=== PATIENT | female | born 1995 | race Caucasian/White ===

== ENCOUNTER 2018-02-20 22:37 | Emergency (ER) | payer OTHER ==
[~2018-02-20] VITALS: Ht 182.9 cm; Wt 113.8 kg
[~2018-02-20 22:37] MED LIST: ACETAMINOPHEN-1 EAC1 PO; ANTIPYRINE-BENZ10 ML OT; AUGMENTIN 875875 MG PO; CEFDINIR300 MG PO; CIPRO500 MG PO; CORTISPORIN OTI10 ML OTIC; HYDROCODON-ACE1 EAC7 PO; HYDROXYZINE HCL25 M1 PO; IBUPROFEN 800800 M1 PO; IBUPROFEN 800800 MG PO; MEDROLDOSEPACK PO; NORCO 5-325 TA1 EACH PO; PERCOCET 5-3251 EACH PO; PHENERGAN 25 MG25 M1 PO; TRAZODONE HCL100 MG PO; VICODIN 5-5001 EACH PO; ZOFRAN4 MG PO
[2018-02-20] MEDS ORDERED: PROZAC20 MG PO (22:45)
[2018-02-20] MEDS ORDERED: PRAZOSIN HCL1 MG (22:47)
[2018-02-20 23:16] LABS: ABSOLUTE BASOPHILS 0.1 thou/uL (0.0-0.2); ABSOLUTE EOSINOPHILS 0.3 thou/uL (0.0-0.7); ABSOLUTE LYMPHOCYTES 3.8 thou/uL (0.8-5.3); ABSOLUTE MONOCYTES 1.1 thou/uL (0.0-1.2); ABSOLUTE NEUTROPHILS 6.5 thou/uL (1.6-8.1); BASOPHILS 0.6 %; EOSINOPHILS 2.4 %; HEMATOCRIT 40.4 % (37.0-47.0); HEMOGLOBIN 13.4 gm/dL (12.0-15.0); LYMPHOCYTES 32.2 %; MCH 26.5 pg (26.0-34.0); MCHC 33.2 g/dL (28.0-37.0); MONOCYTES 9.4 %; MPV 7.7 fl. (7.2-11.1); NUCLEATED RBCS 0 /100WBC; PLATELET COUNT* 361 thou/uL (150-400); POLYS 55.4 %; RBC 5.05 mil/uL (4.20-5.00); WBC 11.8 thou/uL (4.0-11.0)
[2018-02-20 23:32] LABS: ANION GAP 10 mmol/L (7-16); BUN 14 mg/dL (7-18); CALCIUM 8.7 mg/dL (8.5-10.1); CHLORIDE 102 mmol/L (98-107); CO2 28 mmol/L (21-32); GLUCOSE 104 mg/dL (70-99); POTASSIUM 3.2 mmol/L (3.5-5.1); SODIUM 140 mmol/L (136-145)
[2018-02-20 23:39] LABS: ALBUMIN 3.6 g/dL (3.4-5.0); ALKALINE PHOSPHATASE 63 U/L (46-116); SGOT 18 U/L (15-37); SGPT 32 U/L (30-65); TOTAL BILIRUBIN 0.2 mg/dL (<0.1-1.0); TOTAL PROTEIN 7.6 g/dL (6.4-8.2); TROPONIN-I LEVEL <0.06 ng/mL (<0.06)
[2018-02-21 01:38] VITALS: BP 110/56
--- NOTE | 2018-02-21 10:20 | EKG ---
[place] [address] ELECTROCARDIOGRAM REPORT Name: CHRISTIN REMY [id number] Admission: 02/20/18 Attend Phys: Discharge: 02/21/18 Date of : [birth year] Report #: [id number] THIS REPORT FOR: //name// [facility] ED Test Date: 2018-02-20 Test Time: 22:49:05 Pat Name: CHRISTIN REMY Department: Room: Gender: F District Claims Manager: SALVADOR : 1995 Requested By: Jocelyn Ham Order Number: [id number] MD: Logan Mcnair Measurements Intervals [place] Rate: 126 P: 49 PA: 144 QRS: 43 QRSD: 91 T: -14 QT: 315 QTc: 457 Interpretive Statements Sinus tachycardia Borderline T abnormalities, inferior leads No previous ECG available for comparison Electronically Signed On 02-21-2018 10:20:35 PEER TUTOR by Logan Mcnair [email or web address] <ELECTRONICALLY SIGNED> By: Logan Mcnair MD, [facility] 02/21/18 1020 2249 [id number] Logan Mcnair MD, FACC /EPI
--- NOTE | 2018-02-21 10:20 | EKG ---
[place] [address] ELECTROCARDIOGRAM REPORT Name: CHRISTIN REMY Room: [facility] Arun#: [id number] Admission: 02/20/18 Attend Phys: Discharge: 02/21/18 Date of : [birth year] Report #: [id number] THIS REPORT FOR: //name// [facility] ED Test Date: 2018-02-20 Test Time: 23:08:53 Pat Name: CHRISTIN REMY Department: Room: Gender: F Purse Seiner: JOHANNA : 1995 Requested By: Jocelyn Ham Order Number: [id number] Reading MD: Logan Mcnair Measurements Intervals [place] Rate: 69 P: 23 WI: 142 QRS: 46 QRSD: 96 T: 18 QT: 390 QTc: 418 Interpretive Statements Sinus rhythm Borderline Q waves in inferior leads Electronically Signed On 02-21-2018 10:20:49 [employer]SULT[employer] by Logan Mcnair [email or web address] <ELECTRONICALLY SIGNED> By: Logan Mcnair MD, [facility] 02/21/18 1020 2308 [id number] Logan Mcnair MD, FACC /EPI
== END 2018-02-21 01:40 | disposition home or self-care (01) ==
LOC: M.ERS 22:37
PROVIDERS: Emergency Medicine
DX: I47.1 Supraventricular tachycardia (principal); T44.6X5A Adverse effect of alpha-adrenoreceptor antagonists, initial encounter; R42 Dizziness and giddiness; M79.7 Fibromyalgia; Z98.890 Other specified postprocedural states; Y92.89 Other specified places as the place of occurrence of the external cause

== ENCOUNTER 2018-05-21 17:25 | Emergency (ER) | payer OTHER ==
[~2018-05-21] VITALS: Ht 182.9 cm; Wt 113.4 kg
[~2018-05-21 17:25] MED LIST changes: +PRAZOSIN HCL1 MG; +PROZAC20 MG PO
[2018-05-21] MEDS ORDERED: BUTALB-APAP-CA1 EACH PO (18:48)
[2018-05-21] MEDS ORDERED: AUGMENTIN 500-1 EACH PO (18:48)
[2018-05-21 19:42] VITALS: BP 107/59
== END 2018-05-21 19:10 | disposition home or self-care (01) ==
LOC: M.ERS 17:25
DX: G43.909 Migraine, unspecified, not intractable, without status migrainosus (principal); J01.10 Acute frontal sinusitis, unspecified; J01.00 Acute maxillary sinusitis, unspecified; R42 Dizziness and giddiness; M79.7 Fibromyalgia

== ENCOUNTER 2018-11-30 10:57 | Emergency (ER) | payer OTHER ==
[~2018-11-30] VITALS: Ht 182.9 cm; Wt 119.3 kg
[~2018-11-30 10:57] MED LIST changes: +AUGMENTIN 500-1 EACH PO; +BUTALB-APAP-CA1 EACH PO
[2018-11-30] MEDS ORDERED: IMITREX 25 MG T25 M1 PO (11:30)
[2018-11-30] MEDS ORDERED: TRAZODONE HCL100 MG PO (11:30)
[2018-11-30 12:11] LABS: ABSOLUTE BASOPHILS 0.1 thou/uL (0.0-0.2); ABSOLUTE EOSINOPHILS 0.3 thou/uL (0.0-0.7); ABSOLUTE LYMPHOCYTES 2.5 thou/uL (0.8-5.3); ABSOLUTE MONOCYTES 0.6 thou/uL (0.0-1.2); ABSOLUTE NEUTROPHILS 5.4 thou/uL (1.6-8.1); BASOPHILS 0.8 %; EOSINOPHILS 3.3 %; HEMATOCRIT 40.5 % (37.0-47.0); HEMOGLOBIN 13.5 gm/dL (12.0-15.0); LYMPHOCYTES 28.5 %; MCH 26.6 pg (26.0-34.0); MCHC 33.2 g/dL (28.0-37.0); MCV 80.1 fL (80.0-100.0); MONOCYTES 7.2 %; MPV 7.7 fl. (7.2-11.1); NUCLEATED RBCS 0 /100WBC; PLATELET COUNT* 387 thou/uL (150-400); POLYS 60.2 %; RBC 5.06 mil/uL (4.20-5.00); RDW-CV 14.8 % (10.5-14.5); WBC 8.9 thou/uL (4.0-11.0)
[2018-11-30 12:21] LABS: CALCIUM 8.9 mg/dL (8.5-10.1); CREATININE 0.9 mg/dL (0.6-1.3); POTASSIUM 4.3 mmol/L (3.5-5.1)
[2018-11-30] MEDS ORDERED: PHENERGAN 25 MG25 M1 PO (12:42)
[2018-11-30 13:08] VITALS: BP 120/80
== END 2018-11-30 13:09 | disposition home or self-care (01) ==
LOC: M.ERS 10:57
PROVIDERS: Nurse Practitioner Family
DX: G43.009 Migraine without aura, not intractable, without status migrainosus (principal); M79.7 Fibromyalgia; R42 Dizziness and giddiness; Z90.49 Acquired absence of other specified parts of digestive tract; Z98.890 Other specified postprocedural states; Z88.8 Allergy status to other drugs, medicaments and biological substances

== ENCOUNTER → 2019-07-01 | Outpatient (CLI) | payer OTHER ==
[~2019-07-01] MED LIST changes: +IMITREX 25 MG T25 M1 PO
== END ==
LOC: M.LAB 18:36
DX: Z20.828 Contact with and (suspected) exposure to other viral communicable diseases (principal)

== ENCOUNTER 2019-08-05 00:13 | Emergency (ER) | payer OTHER ==
[~2019-08-05] VITALS: Ht 182.9 cm; Wt 119.3 kg
[2019-08-05] MEDS ORDERED: WELLBUTRIN 75 M75 M1 PO (00:25)
[2019-08-05] MEDS ORDERED: AUGMENTIN 875-1 EACH PO (00:25)
[2019-08-05] MEDS ORDERED: NORCO 5-325 TA1 EAC1 PO (01:43)
[2019-08-05 01:59] VITALS: BP 112/67
== END 2019-08-05 01:59 | disposition home or self-care (01) ==
LOC: M.ERS 00:13
DX: S00.03XA Contusion of scalp, initial encounter (principal); M79.7 Fibromyalgia; G43.909 Migraine, unspecified, not intractable, without status migrainosus; Z90.49 Acquired absence of other specified parts of digestive tract; Z88.8 Allergy status to other drugs, medicaments and biological substances; W22.8XXA Striking against or struck by other objects, initial encounter; Y93.89 Activity, other specified; Y92.89 Other specified places as the place of occurrence of the external cause; Y99.8 Other external cause status